=== PATIENT | female | born 1945 | race Caucasian/White ===

== ENCOUNTER 2017-12-23 14:48 | Emergency (ER) | payer MEDICARE, BC ==
[~2017-12-23] VITALS: Ht 165.1 cm; Wt 153.0 kg
[~2017-12-23 14:48] MED LIST: APIX5TAB3 PO; ATOR20TA66 PO; CEFP100T7 PO; GUAI120015 PO; HYDR12.5 PO; LEVO25TA7 PO; LISI-600 PO; MULT-933 PO; NITR0.4T51 SL; OXYB5TAB11 PO; SOTA80TA73 PO
[2017-12-23 15:48] VITALS: BP 127/68
== END 2017-12-23 16:19 | disposition home or self-care (01) ==
LOC: ER 14:48
DX: M25.532 Pain in left wrist (principal); R22.0 Localized swelling, mass and lump, head; E66.9 Obesity, unspecified; I10 Essential (primary) hypertension; Z90.49 Acquired absence of other specified parts of digestive tract; Z90.710 Acquired absence of both cervix and uterus; Z98.890 Other specified postprocedural states; Z85.3 Personal history of malignant neoplasm of breast; Z79.899 Other long term (current) drug therapy; W01.198A Fall on same level from slipping, tripping and stumbling with subsequent striking against other object, initial encounter; Y93.89 Activity, other specified; Y92.89 Other specified places as the place of occurrence of the external cause; Y99.9 Unspecified external cause status
CPT/HCPCS: 29125; 70450; 73110; 99284